=== PATIENT | female | born 1990 | race Caucasian/White ===

== ENCOUNTER → 2020-02-02 | Outpatient (CLI) | payer SELFPAY | END | disposition home or self-care (01) | LOC: LABSPEC 10:39 | PROVIDERS: PCP Family Medicine; Visit Provider Otolaryngology | DX: R05 Cough (principal) | CPT/HCPCS: 87070; 87205 ==

== ENCOUNTER → 2024-11-27 | Outpatient (CLI) | payer SELFPAY ==
[2024-11-27 13:04] LABS: Hematocrit 38.0 % (37-47); Hemoglobin 13.2 g/dL (12.0-15.0); Immature Granulocytes Count 0.030 X10^3/uL (0.0-0.0); Mean Corp Hgb Conc 34.7 g/dL (32-36); Mean Corpuscular Volume 84.8 fL (81-99); Mean Platelet Vol. 8.9 fl (6.2-12.0); NRBC Flagged by Analyzer 0 % (0-5); Platelet Count 342 K/mm3 (150-450); RBC Distribution Width CV 12.8 % (11.6-14.6); RBC Distribution Width SD 39.2 fl (35.1-43.9); Red Blood Count 4.48 M/mm3 (4.2-5.4); White Blood Count 9.3 K/mm3 (4.4-11.0)
[2024-11-27 13:54] LABS: AST(SGOT) 22 U/L (<=31); Alanine Aminotransfer ALT/SGPT 19 U/L (<=34); Albumin, Serum 4.4 g/dL (3.5-5.0); Alkaline Phosphatase 84 U/L (35-104); Anion Gap 11 (5-15); BUN 11 mg/dL (4-19); BUN/Creat Ratio 14.7 RATIO (10-20); Calcium,Total 9.5 mg/dL (7.6-11.0); Carbon Dioxide 24.7 mmol/L (21.0-32.0); Chloride 105 mmol/L (98-108); Free T3 2.8 pg/mL (2.18-3.98); Globulin 2.9 g/dL (2.2-4.2); Glucose 95 mg/dL (70-99); Potassium 4.8 mmol/L (3.3-5.1)
[2024-11-27 20:49] LABS: Amylase 25 U/L (28-100); CRP < 3.00 mg/L (0.0-3.0); LDH 172 U/L (84-246); Lipase 36 U/L (13-75)
[2024-12-01 04:07] LABS: Egg, White <0.10 kU/L (Class 0); SCALLOP <0.10 kU/L (Class 0); SESAME SEED <0.10 kU/L (Class 0); Walnut, (Food) <0.10 kU/L (Class 0)
[2024-12-03 12:52] LABS: ACCA 14 units (0-90); ALCA 5 units (0-60); AMCA 5 units (0-100); Cytoplasmic Ab (C-ANCA) <1:20 titer (Neg:<1:20); IgG, Quant 1076 mg/dL (586-1602); Immunoglobulin A 417 mg/dL (87-352); Immunoglobulin G, Subclass 1 587 mg/dL (248-810); Immunoglobulin G, Subclass 2 201 mg/dL (130-555); Immunoglobulin G, Subclass 3 26 mg/dL (15-102); Immunoglobulin G, Subclass 4 32 mg/dL (2-96); Immunoglobulin M 40 mg/dL (26-217); Perinuclear Ab (P-ANCA) <1:20 titer (Neg:<1:20); QNTFERON TB Mitogen Value > 10.00 IU/mL (.); QNTFERON TB Nil Value 0.03 IU/mL (.); QNTFERON TB1+ Ag Value 0.04 IU/mL (.); QNTFERON TB2+ Ag Value 0.04 IU/mL (.); QNTIFERON TB Positive Criteria Negative (Negative)
== END | disposition home or self-care (01) ==
PROVIDERS: Referring Provider Internal Medicine Gastroenterology; Visit Provider Internal Medicine Gastroenterology
DX: R19.7 Diarrhea, unspecified (principal)
CPT/HCPCS: 36415; 80053; 82150; 82784; 82785; 82787; 83516; 83615; 83690; 84439; 84443; 84481; 85025; 85652; 86003; 86036; 86037; 86140; 86255; 86480; 86671

== ENCOUNTER → 2025-01-09 | Outpatient (CLI) | payer SELFPAY ==
[2025-01-14 02:07] LABS: Pancreatic Elastase, Fecal > 800 (>200)
[2025-01-14 09:08] LABS: Calprotectin, Stool 44 ug/g (0-120); Fats, Neutral Normal (.); Fats, Total Normal (.)
== END | disposition home or self-care (01) ==
PROVIDERS: Referring Provider Internal Medicine Gastroenterology; Visit Provider Internal Medicine Gastroenterology
DX: K58.9 Irritable bowel syndrome, unspecified (principal); R19.7 Diarrhea, unspecified
CPT/HCPCS: 82274; 82653; 82705; 83630; 83993; 87177; 87209; 87329; 87493; 87506